=== PATIENT | male | born 1950 | race African-American/Black ===

== ENCOUNTER 2022-07-03 08:24 | Inpatient (IN) | payer MEDICARE ==
[~2022-07-03] VITALS: Ht 172.7 cm; Wt 99.8 kg
[2022-07-03 08:52] LABS: BASOPHILS % 0.2 % (0.0-1.0); EOSINOPHILS # (AUTO) 0.1 (0.0-0.4); EOSINOPHILS % 0.7 % (0.0-6.0); HEMATOCRIT 42.5 % (38.2-49.6); HEMOGLOBIN 13.1 g/dL (14.0-18.0); LYMPHOCYTES # (AUTO) 2.7 (1.0-3.2); LYMPHOCYTES % 23.6 % (18.0-39.1); MEAN CORPUSCULAR HGB CONC 30.8 g/dL (31-35); MEAN CORPUSCULAR VOLUME 97.5 fL (81-99); MONOCYTES # (AUTO) 0.9 (0.2-0.8); NEUTROPHILS # (AUTO) 7.7 (2.1-6.9); NEUTROPHILS % 67.2 % (38.7-80.0); PLATELET COUNT 246 x10e3/uL (140-360); RED BLOOD COUNT 4.36 x10e6/uL (4.3-5.7); RED CELL DISTRIBUTION WIDTH 13.2 % (11.7-14.4)
[2022-07-03 09:09] LABS: ALBUMIN 4.1 g/dL (3.5-5.0); ALBUMIN/GLOBULIN RATIO 1.2 (0.8-2.0); ANION GAP 23.8 mmol/L (8-16); CALCIUM 8.7 mg/dL (8.4-10.2); CREATININE, SERUM 7.95 mg/dL (0.72-1.25); POTASSIUM 3.8 mmol/L (3.5-5.1)
[2022-07-03] MEDS ORDERED: SODIUM CHLORIDE 0.9% 1000ML 1,000 ML IV STA (09:22)
[2022-07-03] MEDS ORDERED: ONDANSETRON HCL INJ 2MG/ML 2ML 2 MG/ML VIAL IV PRN (10:00)
[2022-07-03] MEDS: SODIUM CHLORIDE 0.9% 1000ML 1,000 ML IV SCH (11:05)
[2022-07-03 13:00] VITALS: BP 121/80
[2022-07-03] MEDS ORDERED: FINASTERIDE5 MG PO (14:26)
[2022-07-03] MEDS ORDERED: FLOMAX0.4 MG PO (14:26)
[2022-07-03] MEDS ORDERED: ATORVASTATIN CA10 MG PO (14:26)
[2022-07-03] MEDS ORDERED: LISINOPRIL-HCT1 EAC1 PO (14:26)
[2022-07-03] MEDS ORDERED: COLCHICINE0.6 M1 PO (14:26)
[2022-07-03] MEDS ORDERED: MELATONIN 5 MG TABLET PO PRN (15:30)
[2022-07-03] MEDS ORDERED: ACETAMINOPHEN/CODEINE 300MG - 30MG TAB PO PRN (15:30)
[2022-07-03] MEDS ORDERED: Morphine 2mg Syringe 2 MG/ML SYR IV PRN (15:30)
[2022-07-03] MEDS ORDERED: HYDRALAZINE HCL 20 MG/ML VIAL IV PRN (15:30)
[2022-07-03] MEDS ORDERED: ACETAMINOPHEN 325 MG TAB PO PRN (15:30)
[2022-07-03 15:50] VITALS: BP 117/74
[2022-07-03 17:18] LABS: CLARITY,URINE SL CLOUDY (CLEAR); COLOR,URINE YELLOW (YELLOW); KETONES,URINE NEGATIVE (NEGATIVE); LEUKOCYTE ESTERASE ,URINE MODERATE (NEGATIVE); NITRITE,URINE POSITIVE (NEGATIVE); PROTEIN,URINE DIPSTICK NEGATIVE (NEGATIVE)
[2022-07-03 17:19] LABS: BACTERIA,URINE FEW /HPF; EPITHELIAL CELLS,URINE RARE /LPF; URINE UROBILINOGEN 0.2 mg/dL (0.2 - 1)
[2022-07-03 20:00] VITALS: BP 115/72
[2022-07-03 20:25] VITALS: BP 115/72
[2022-07-04] VITALS (8 sets, daily range): BP systolic 111–126; BP diastolic 67–86
[2022-07-04 07:34] LABS: BASOPHILS % 0.3 % (0.0-1.0); EOSINOPHILS # (AUTO) 0.1 (0.0-0.4); EOSINOPHILS % 1.2 % (0.0-6.0); HEMATOCRIT 38.2 % (38.2-49.6); HEMOGLOBIN 11.7 g/dL (14.0-18.0); LYMPHOCYTES % 27.7 % (18.0-39.1); MEAN CORPUSCULAR HEMOGLOBIN 30.3 pg (28-32); MEAN CORPUSCULAR HGB CONC 30.6 g/dL (31-35); NEUTROPHILS # (AUTO) 6.6 (2.1-6.9); NEUTROPHILS % 61.5 % (38.7-80.0); PLATELET COUNT 234 x10e3/uL (140-360); RED BLOOD COUNT 3.86 x10e6/uL (4.3-5.7); RED CELL DISTRIBUTION WIDTH 13.4 % (11.7-14.4)
[2022-07-04 08:00] LABS: ALBUMIN 3.4 g/dL (3.5-5.0); ALBUMIN/GLOBULIN RATIO 1.2 (0.8-2.0); ANION GAP 19.2 mmol/L (8-16); CALCIUM 7.9 mg/dL (8.4-10.2); CREATININE, SERUM 8.13 mg/dL (0.72-1.25); POTASSIUM 4.2 mmol/L (3.5-5.1)
[2022-07-04] MEDS: SODIUM CHLORIDE 0.9% 1000ML 1,000 ML IV SCH ×3 (08:36→17:42)
[2022-07-04] MEDS ORDERED: POLYETHYLENE GLYCOL 3350 17 GM PACK PO PRN (15:15)
[2022-07-04] MEDS ORDERED: HYDRALAZINE HCL 20 MG/ML VIAL IV PRN (15:15)
[2022-07-04] MEDS ORDERED: POLYETHYLENE GLYCOL 3350 17 GM PACK PO ONE (15:15)
[2022-07-04] MEDS: TAMSULOSIN HCL 0.4 MG CAP PO SCH (16:45)
[2022-07-04] MEDS: FAMOTIDINE 20 MG TAB PO SCH (16:45)
[2022-07-04] MEDS: ATORVASTATIN 10 MG TAB PO SCH (20:58)
[2022-07-05] VITALS (8 sets, daily range): BP systolic 111–140; BP diastolic 71–83
[2022-07-05 06:32] LABS: BASOPHILS % 0.4 % (0.0-1.0); EOSINOPHILS # (AUTO) 0.1 (0.0-0.4); EOSINOPHILS % 1.6 % (0.0-6.0); HEMATOCRIT 35.3 % (38.2-49.6); HEMOGLOBIN 11.6 g/dL (14.0-18.0); LYMPHOCYTES # (AUTO) 2.2 (1.0-3.2); LYMPHOCYTES % 26.2 % (18.0-39.1); MEAN CORPUSCULAR HEMOGLOBIN 30.6 pg (28-32); MEAN CORPUSCULAR HGB CONC 32.9 g/dL (31-35); MEAN CORPUSCULAR VOLUME 93.1 fL (81-99); MONOCYTES # (AUTO) 0.9 (0.2-0.8); MONOCYTES % 10.7 % (4.4-11.3); NEUTROPHILS # (AUTO) 5.2 (2.1-6.9); NEUTROPHILS % 60.6 % (38.7-80.0); PLATELET COUNT 227 x10e3/uL (140-360); RED BLOOD COUNT 3.79 x10e6/uL (4.3-5.7); RED CELL DISTRIBUTION WIDTH 13.5 % (11.7-14.4)
[2022-07-05 06:57] LABS: ALBUMIN 3.5 g/dL (3.5-5.0); ALBUMIN/GLOBULIN RATIO 1.1 (0.8-2.0); ANION GAP 17.8 mmol/L (8-16); CALCIUM 8.2 mg/dL (8.4-10.2); CREATININE, SERUM 6.89 mg/dL (0.72-1.25); MAGNESIUM 1.5 MG/DL (1.3-2.1); PHOSPHORUS 6.2 MG/DL (2.3-4.7); POTASSIUM 3.8 mmol/L (3.5-5.1)
[2022-07-05 07:18] LABS: THYROID STIMULATING HORMONE 1.092 uIU/mL (0.350-4.940)
[2022-07-05] MEDS: FINASTERIDE 5 MG TAB PO SCH (09:23)
[2022-07-05] MEDS: FAMOTIDINE 20 MG TAB PO SCH ×2 (09:23→16:53)
[2022-07-05] MEDS: TAMSULOSIN HCL 0.4 MG CAP PO SCH ×2 (09:23→16:53)
[2022-07-05] MEDS: SODIUM CHLORIDE 0.9% 1000ML 1,000 ML IV SCH ×5 (09:24→21:48)
[2022-07-05] MEDS ORDERED: BISACODYL 10 MG SUPP PR ONE (12:15)
[2022-07-05] MEDS ORDERED: BISACODYL 10 MG SUPP PR PRN (12:15)
[2022-07-05] MEDS: POLYETHYLENE GLYCOL 3350 17 GM PACK PO SCH ×2 (14:33→16:56)
[2022-07-05] MEDS: DOCUSATE SODIUM 100 MG CAP PO SCH ×3 (14:36→21:48)
[2022-07-05] MEDS: SENNA-S TABLET PO SCH (16:53)
[2022-07-05] MEDS: ATORVASTATIN 10 MG TAB PO SCH (21:45)
[2022-07-06] VITALS (7 sets, daily range): BP systolic 130–159; BP diastolic 74–80
[2022-07-06] MEDS: SODIUM CHLORIDE 0.9% 1000ML 1,000 ML IV SCH ×4 (04:20→23:01)
[2022-07-06 05:16] LABS: BASOPHILS % 0.4 % (0.0-1.0); EOSINOPHILS # (AUTO) 0.2 (0.0-0.4); EOSINOPHILS % 2.4 % (0.0-6.0); HEMATOCRIT 35.8 % (38.2-49.6); HEMOGLOBIN 11.8 g/dL (14.0-18.0); LYMPHOCYTES # (AUTO) 2.3 (1.0-3.2); LYMPHOCYTES % 29.2 % (18.0-39.1); MEAN CORPUSCULAR HEMOGLOBIN 30.4 pg (28-32); MEAN CORPUSCULAR VOLUME 92.3 fL (81-99); MONOCYTES # (AUTO) 0.8 (0.2-0.8); MONOCYTES % 9.9 % (4.4-11.3); NEUTROPHILS # (AUTO) 4.6 (2.1-6.9); NEUTROPHILS % 57.6 % (38.7-80.0); PLATELET COUNT 226 x10e3/uL (140-360); RED BLOOD COUNT 3.88 x10e6/uL (4.3-5.7); RED CELL DISTRIBUTION WIDTH 13.4 % (11.7-14.4)
[2022-07-06 07:10] LABS: ALBUMIN 3.4 g/dL (3.5-5.0); ALBUMIN/GLOBULIN RATIO 1.1 (0.8-2.0); ANION GAP 15.9 mmol/L (8-16); CALCIUM 8.7 mg/dL (8.4-10.2); CREATININE, SERUM 4.4 mg/dL (0.72-1.25); POTASSIUM 3.9 mmol/L (3.5-5.1)
[2022-07-06 08:46] LABS: THYROID STIMULATING HORMONE 1.336 uIU/mL (0.350-4.940)
[2022-07-06] MEDS: POLYETHYLENE GLYCOL 3350 17 GM PACK PO SCH ×2 (09:00→16:55)
[2022-07-06 09:22] LABS: CHOL/HDL RATIO 4.1 (3.9-4.7)
[2022-07-06] MEDS: DOCUSATE SODIUM 100 MG CAP PO SCH ×3 (09:59→23:00)
[2022-07-06] MEDS: SENNA-S TABLET PO SCH ×2 (09:59→16:56)
[2022-07-06] MEDS: TAMSULOSIN HCL 0.4 MG CAP PO SCH ×2 (09:59→17:12)
[2022-07-06] MEDS: FINASTERIDE 5 MG TAB PO SCH (10:00)
[2022-07-06] MEDS: FAMOTIDINE 20 MG TAB PO SCH ×2 (10:02→17:12)
[2022-07-06] MEDS ORDERED: ONDANSETRON HCL 4 MG ORAL DISINTEGRATING TAB PO PRN (14:15)
[2022-07-06] MEDS: ATORVASTATIN 10 MG TAB PO SCH (23:00)
[2022-07-07] VITALS: BP 131/65
[2022-07-07 04:47] VITALS: BP 133/72
[2022-07-07] MEDS: SODIUM CHLORIDE 0.9% 1000ML 1,000 ML IV SCH ×2 (06:08→09:38)
[2022-07-07 08:03] VITALS: BP 136/81
[2022-07-07] MEDS: POLYETHYLENE GLYCOL 3350 17 GM PACK PO SCH (09:37)
[2022-07-07] MEDS: TAMSULOSIN HCL 0.4 MG CAP PO SCH (09:37)
[2022-07-07] MEDS: FINASTERIDE 5 MG TAB PO SCH (09:37)
[2022-07-07] MEDS: SENNA-S TABLET PO SCH (09:37)
[2022-07-07] MEDS: DOCUSATE SODIUM 100 MG CAP PO SCH (09:37)
[2022-07-07] MEDS: FAMOTIDINE 20 MG TAB PO SCH (09:37)
[2022-07-07] MEDS ORDERED: AMLODIPINE BESYLATE 5 MG TAB PO SCH (10:45)
[2022-07-07 11:13] LABS: BASOPHILS % 0.4 % (0.0-1.0); EOSINOPHILS # (AUTO) 0.2 (0.0-0.4); EOSINOPHILS % 2.5 % (0.0-6.0); HEMATOCRIT 36.4 % (38.2-49.6); HEMOGLOBIN 11.2 g/dL (14.0-18.0); LYMPHOCYTES # (AUTO) 1.9 (1.0-3.2); LYMPHOCYTES % 25.5 % (18.0-39.1); MEAN CORPUSCULAR HEMOGLOBIN 30.4 pg (28-32); MEAN CORPUSCULAR HGB CONC 30.8 g/dL (31-35); MEAN CORPUSCULAR VOLUME 98.6 fL (81-99); MONOCYTES # (AUTO) 0.6 (0.2-0.8); NEUTROPHILS # (AUTO) 4.6 (2.1-6.9); NEUTROPHILS % 63.5 % (38.7-80.0); PLATELET COUNT 229 x10e3/uL (140-360); RED BLOOD COUNT 3.69 x10e6/uL (4.3-5.7); RED CELL DISTRIBUTION WIDTH 13.3 % (11.7-14.4)
[2022-07-07 11:39] LABS: ANION GAP 12.8 mmol/L (8-16); CALCIUM 8.7 mg/dL (8.4-10.2); CREATININE, SERUM 2.53 mg/dL (0.72-1.25); POTASSIUM 3.8 mmol/L (3.5-5.1)
[2022-07-07 12:00] VITALS: BP 124/67
[2022-07-07] MEDS ORDERED: Docusate Sodium PO (13:40)
[2022-07-07] MEDS ORDERED: NORVASC5 MG PO (13:40)
[2022-07-07] MEDS ORDERED: ONDANSETRON ODT4 MG PO (13:40)
[2022-07-07] MEDS ORDERED: ACETAMINOPHEN325 M1 PO (13:40)
[2022-07-07] MEDS ORDERED: CIPRO250 MG PO (14:16)
[2022-07-07 16:22] VITALS: BP 134/72
== END 2022-07-07 17:00 | disposition home or self-care (01) | DRG 690 ==
LOC: ER 08:42 → ERHOLD 10:02 → MED/SURG 13:00 → OBSVTOIN 07-06 13:15
PROVIDERS: ADMIT Internal Medicine; ATTEND Internal Medicine
DX: N39.0 Urinary tract infection, site not specified (principal); N17.9 Acute kidney failure, unspecified; E87.20 Acidosis, unspecified; N40.1 Benign prostatic hyperplasia with lower urinary tract symptoms; N13.8 Other obstructive and reflux uropathy; R33.8 Other retention of urine; I12.9 Hypertensive chronic kidney disease with stage 1 through stage 4 chronic kidney disease, or unspecified chronic kidney disease; N18.9 Chronic kidney disease, unspecified; E66.09 Other obesity due to excess calories; Z68.34 Body mass index [BMI] 34.0-34.9, adult; Z20.822 Contact with and (suspected) exposure to COVID-19; I71.43 Infrarenal abdominal aortic aneurysm, without rupture; M10.9 Gout, unspecified; E78.00 Pure hypercholesterolemia, unspecified; Z87.891 Personal history of nicotine dependence; R00.1 Bradycardia, unspecified
CPT/HCPCS: 0223U; 36415; 51700; 74176; 76770; 80048; 80053; 80061; 81001; 83036; 83735; 84100; 84443; 85025; 87086; 93005; 94799; 96360; 96361; 99284; G0378; J0692; J0696; J2405; J7030